=== PATIENT | female | born 1945 | race Two or more races ===

== ENCOUNTER 2018-11-23 14:37 | Emergency (ER) | payer OTHER ==
[~2018-11-23] VITALS: Ht 157.5 cm; Wt 72.6 kg
[2018-11-23] MEDS ORDERED: MUCINEX DM ER1 EACH (15:03)
[2018-11-23] MEDS ORDERED: ZITHROMAX200 MG (15:03)
== END 2018-11-23 20:03 | disposition home or self-care (01) ==
LOC: ER 14:37
DX: K52.89 Other specified noninfective gastroenteritis and colitis (principal)

== ENCOUNTER 2018-12-06 10:13 | Outpatient (CLI) | payer OTHER ==
[~2018-12-06 10:13] MED LIST: MUCINEX DM ER1 EACH; ZITHROMAX200 MG
== END 2018-12-06 11:05 | disposition home or self-care (01) ==
LOC: LAB 10:13
DX: J11.1 Influenza due to unidentified influenza virus with other respiratory manifestations (principal)

== ENCOUNTER 2020-01-10 14:37 | Outpatient (CLI) | payer OTHER ==
[~2020-01-10] VITALS: Ht 157.5 cm; Wt 72.6 kg
[2020-01-10] MEDS ORDERED: FLONASE16 GM NASAL (15:35)
== END 2020-01-10 17:00 | disposition home or self-care (01) ==
LOC: OFIC 805 14:37
PROVIDERS: ATTEND Otolaryngology
DX: R09.81 Nasal congestion (principal); S02.2XXA Fracture of nasal bones, initial encounter for closed fracture

== ENCOUNTER → 2020-02-12 | Outpatient (CLI) | payer OTHER ==
[~2020-02-12] MED LIST changes: +FLONASE16 GM NASAL
== END | disposition home or self-care (01) ==
LOC: OFIC 805 02-11 10:15
PROVIDERS: ATTEND Otolaryngology
DX: S02.2XXA Fracture of nasal bones, initial encounter for closed fracture (principal); R09.81 Nasal congestion